=== PATIENT | female | born 1970 | race Caucasian/White ===

== ENCOUNTER 2017-11-27 16:31 | Emergency (ER) | payer OTHER ==
[~2017-11-27] VITALS: Ht 175.3 cm; Wt 63.0 kg
[~2017-11-27 16:31] MED LIST: BUPROPION HCL150 M2 PO; CENTRUM ULTRA1 EAC1 PO; CIPRO250 MG PO; CIPRO500 MG PO; FLUPHENAZINE; KEFLEX500 MG PO; LISINOPRIL2.5 MG PO; NICODERM CQ1 EAC2 TD; NITROFURANTOIN100 M3 PO; PROLIXIN DEC25 MG/ML IM; PROLIXIN1 MG PO; PROLIXIN10 MG PO; TESSALON PERLE100 MG PO; VENTOLIN HFA18 GM IH; ZITHROMAX Z-PA250 MG PO
[2017-11-27] MEDS ORDERED: MOTRIN600 MG PO (17:30)
[2017-11-27] MEDS ORDERED: MEDROL DOSEPAK4 MG PO (17:30)
[2017-11-27] MEDS ORDERED: AMOXICILLIN875 MG PO (17:30)
[2017-11-27 17:38] VITALS: BP 144/98
== END 2017-11-27 17:39 | disposition home or self-care (01) ==
LOC: EME 16:31
DX: J02.0 Streptococcal pharyngitis (principal); R00.0 Tachycardia, unspecified; Z88.2 Allergy status to sulfonamides
CPT/HCPCS: 87651 90; 99281; 99283